=== PATIENT | female | born 1950 | race American Indian/Alaskan Native ===

== ENCOUNTER 2016-05-12 08:43 | Outpatient (CLI) | payer OTHER ==
--- NOTE | 2016-05-12 11:34 | Mammography Report ---
BILATERAL MAMMOGRAM: FINDINGS: The breasts are almost entirely fat (<25% glandular). No mass, distortion, suspicious calcification, or skin change is seen. CAD was utilized. IMPRESSION: Negative mammogram. There is no mammographic evidence of malignancy. RECOMMENDATION: Follow-up per ACS guidelines. BI-RADS CATEGORY: 1 = Negative ACR BI-RADS MAMMOGRAPHIC CODES: 0 = Needs additional imaging evaluation; 1 = Negative; 2 = Benign; 3 = Probably benign; 4 = Suspicious; 5 = Malignant; 6 = Known biopsy-proven malignancy COMMENT: 1. Dense breast tissue, i.e., adenosis, fibrocystic changes, etc., may obscure an underlying neoplasm. 2. Approximately 10% of cancers are not detected with mammography. 3. A negative mammography report should not delay biopsy if a clinically suspicious mass is present. COMMENT: Patient follow-up letters are generated in [employer].
== END 2016-05-12 08:44 | disposition home or self-care (01) ==
LOC: SPVWC 08:43
PROVIDERS: ATTEND Internal Medicine
DX: Z12.31 Encounter for screening mammogram for malignant neoplasm of breast (principal)
CPT/HCPCS: 77067; G0202

== ENCOUNTER 2017-04-21 00:28 | Emergency (ER) | payer OTHER ==
[2017-04-21] MEDS ORDERED: ASPIRIN PO ONE (01:01)
[2017-04-21 02:01] LABS: Basophils # (Auto) 0.1 K/mm3 (0.0-0.1); Basophils % (Auto) 0.7 % (0.0-1.8); Eosinophils # (Auto) 0.1 K/mm3 (0.0-0.4); Eosinophils % (Auto) 1.2 % (0.0-4.3); Hematocrit 38.2 % (30.3-42.9); Hemoglobin 13.1 gm/dl (10.1-14.3); Lymphocytes # (Auto) 2.3 K/mm3 (1.2-5.4); Lymphocytes % (Auto) 24.5 % (13.4-35.0); Mean Corpuscular HGB Conc 34 % (30-34); Mean Corpuscular Hemoglobin 33 pg (28-32); Mean Corpuscular Volume 96 fl (79-97); Monocytes # (Auto) 0.8 K/mm3 (0.0-0.8); Monocytes % (Auto) 8.2 % (0.0-7.3); Platelet Count 381 K/mm3 (140-440); Red Blood Count 3.97 M/mm3 (3.65-5.03); Red Cell Distribution Width 14.2 % (13.2-15.2)
[2017-04-21 02:16] LABS: BUN/Creatinine Ratio 16; Blood Urea Nitrogen 14 mg/dL (7-17); Calcium 9.1 mg/dL (8.4-10.2); Hemolysis Index 135
[2017-04-21] MEDS ORDERED: BENADRYL IM ONE (17:59)
--- NOTE | 2017-04-21 18:08 | Emergency Department Report ---
ED Chest Pain HPI - General Chief Complaint: Chest Pain Stated Complaint: CHEST PAIN Time Seen by Provider: 04/21/17 17:38 Source: patient Mode of arrival: Ambulatory Limitations: No Limitations - History of Present Illness MD Complaint: chest pain, other (hives and itchiness all over, thinks maybe triggered this time by AB (Clindamycin) which she took 3-4 weeks ago for tooth problem. Took Prednisone 60 mg X3 days but no improvement. Her PCP wanted to give her Hydroxyzine but she was concerned about side effects.) -: days(s) (Since Sunday) Pain Location: substernal Pain Radiation: back Severity scale (0 -10): 8 Quality: sharp Consistency: intermittent Improves With: other (sitting) Worsens With: supine, other (worse at night) Context: recent illness re: vomting, dyspnea. denies: nausea, diaphoresis Other Symptoms: cough, acid taste in mouth. denies: fever, syncope, leg swelling, palpitations Treatments Prior to Arrival: none - Related Data Home Medications Medication Instructions Recorded Confirmed Last Taken HCTZ 25 mg PO DAILY 04/21/17 04/21/17 Unknown Omeprazole 40 mg PO DAILY 04/21/17 04/21/17 Unknown Previous Rx's Medication Instructions Recorded Last Taken Type Prednisone 60 mg PO DAILY 7 Days tablet 04/21/17 Unknown Rx Allergies Allergy/AdvReac Type Severity Reaction Status Date / Time ciprofloxacin [From Cipro] Allergy Hives Verified 04/21/17 00:57 clindamycin Allergy Itching Verified 04/21/17 00:59 hydrocodone Allergy Hives Verified 04/21/17 00:59 latex Allergy Itching Verified 04/21/17 00:59 Penicillins Allergy Hives Verified 04/21/17 00:57 Sulfa (Sulfonamide Allergy Itching Verified 04/21/17 00:58 Antibiotics) sulfamethoxazole Allergy Itching Verified 04/21/17 00:57 [From Bactrim] tramadol Allergy Hives Verified 04/21/17 00:58 trimethoprim [From Bactrim] Allergy Itching Verified 04/21/17 00:57 Heart Score - HEART Score History: Slightly suspicious EKG: Non-specific Age: 45-65 Risk factors: 1-2 risk factors Troponin: < normal limit HEART Score: 3 ED Review of Systems ROS: Stated complaint: CHEST PAIN Other details as noted in HPI Constitutional: denies: chills, fever Eyes: denies: eye pain, eye discharge, vision change ENT: throat pain. denies: ear pain Respiratory: see HPI, cough, shortness of breath. denies: wheezing Cardiovascular: denies: chest pain, palpitations Endocrine: no symptoms reported Gastrointestinal: denies: abdominal pain, nausea, diarrhea Genitourinary: denies: urgency, dysuria, discharge Musculoskeletal: denies: back pain, joint swelling, arthralgia Skin: denies: rash, lesions Neurological: denies: headache, weakness, paresthesias Psychiatric: denies: anxiety, depression Hematological/Lymphatic: denies: easy bleeding, easy bruising ED Past Medical Hx - Past Medical History Hx Hypertension: Yes Hx GERD: Yes Additional medical history: Sarcoidosis, Lupus - Surgical History Past Surgical History?: Yes Hx Cholecystectomy: Yes Additional Surgical History: Hysterectomy - Social History Smoking Status: Never Smoker Substance Use Type: None - Medications Home Medications: Home Medications Medication Instructions Recorded Confirmed Last Taken Type HCTZ 25 mg PO DAILY 04/21/17 04/21/17 Unknown History Omeprazole 40 mg PO DAILY 04/21/17 04/21/17 Unknown History Prednisone 60 mg PO DAILY 7 Days tablet 04/21/17 Unknown Rx ED Physical Exam - General Limitations: No Limitations General appearance: alert, in no apparent distress - Head Head exam: Present: atraumatic, normocephalic - Eye Eye exam: Present: normal appearance - ENT ENT exam: Present: mucous membranes moist - Neck Neck exam: Present: normal inspection - Respiratory Respiratory exam: Present: normal lung sounds bilaterally. Absent: respiratory distress - Cardiovascular Cardiovascular Exam: Present: regular rate, normal rhythm. Absent: systolic murmur, diastolic murmur, rubs, gallop - GI/Abdominal GI/Abdominal exam: Present: soft, normal bowel sounds - Extremities Exam Extremities exam: Present: normal inspection - Back Exam Back exam: Present: normal inspection - Neurological Exam Neurological exam: Present: alert, oriented X3 - Psychiatric Psychiatric exam: Present: normal affect, normal mood - Skin Skin exam: Present: warm, dry, normal color, urticaria. Absent: rash ED Course Vital Signs 04/21/17 04/21/17 00:44 09:15 Temperature 98.6 F 98.3 F Pulse Rate 88 82 Respiratory 18 20 Rate Blood Pressure 124/68 135/62 O2 Sat by Pulse 99 98 Oximetry - Reevaluation(s) Reevaluation #1: 04/21/17 19:28 Itchiness improved on Solu-Medrol and Benadryl TORRI score - Torri Score Age > 65: (0) No Aspirin use within the Past 7 Days: (1) Yes 3 or more CAD Risk Factors: (0) No 2 or more Angina events in past 24 hrs: (0) No Known CAD with more than 50% Stenosis: (0) No Elevated Cardiac Markers: (0) No ST Deviation Greater than 0.5mm: (0) No TORRI Score: 1 ED Medical Decision Making - Lab Data Result diagrams: 04/21/17 01:01 04/21/17 01:01 Critical care attestation.: If time is entered above; I have spent that time in minutes in the direct care of this critically ill patient, excluding procedure time. ED Disposition Clinical Impression: Atypical chest pain, Urticaria Disposition: - TO HOME OR SELFCARE Is pt being admited?: No Does the pt Need Aspirin: No Condition: Good Instructions: Chest Pain (ED) Additional Instructions: Urticaria Prescriptions: Prednisone 60 mg PO DAILY 7 Days tablet Referrals: ASIYA NATHAN RN [Primary Care Provider] - 3-5 Days Time of Disposition: 19:32
[2017-04-21 18:42] VITALS: BP 149/76
--- NOTE | 2017-04-21 19:02 | XRay Report ---
FINAL REPORT PROCEDURE: Chest. TECHNIQUE: Portable AP view. HISTORY: Chest pain. COMPARISON: No prior studies are available for comparison. FINDINGS: The heart and mediastinum appear normal. There is mild tortuosity of the thoracic aorta. The lungs are clear and well expanded. There are no pleural effusions. The soft tissues are unremarkable. 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 IMPRESSION: No evidence of acute cardiopulmonary disease.
== END 2017-04-21 19:56 | disposition home or self-care (01) ==
LOC: ED 00:28
DX: R07.89 Other chest pain (principal); L50.9 Urticaria, unspecified; I10 Essential (primary) hypertension; K21.9 Gastro-esophageal reflux disease without esophagitis; Z88.2 Allergy status to sulfonamides; Z88.0 Allergy status to penicillin; Z88.1 Allergy status to other antibiotic agents; Z88.8 Allergy status to other drugs, medicaments and biological substances
CPT/HCPCS: 36415; 71045; 80048; 84484; 85025; 93005; 93010; 96372; 99284; J1200; J2930